=== PATIENT | female | born 1970 | race Two or more races ===

== ENCOUNTER 2019-08-29 09:01 | Emergency (ER) | payer SELFPAY ==
--- NOTE | 2019-08-29 10:24 | RADIOLOGY REPORT (SQ) ---
EXAM DESCRIPTION: CHEST SINGLE VIEW COMPLETED DATE/TIME: 08/29/2019 10:12 am REASON FOR STUDY: chest pain COMPARISON: None. EXAM PARAMETERS: NUMBER OF VIEWS: One view. TECHNIQUE: Single frontal radiographic view of the chest acquired. RADIATION DOSE: NA LIMITATIONS: None. FINDINGS: LUNGS AND PLEURA: No consolidation, pleural effusion or pneumothorax. MEDIASTINUM AND HILAR STRUCTURES: No mediastinal hilar contour abnormality. HEART AND VASCULAR STRUCTURES: The cardiac silhouette and pulmonary vasculature are within normal bee its. BONES: No acute findings. HARDWARE: None in the chest. OTHER: No other finding. IMPRESSION: No acute cardiopulmonary process. TECHNICAL DOCUMENTATION: JOB ID: [id number] [employer]- All Rights Reserved Reading location - IP/workstation name: [email or web address]
[2019-08-29 10:26] LABS: ABSOLUTE EOSINOPHILS # (AUTO) 0.1 10^3/uL (0.0-0.6); ABSOLUTE LYMPHOCYTES (AUTO) 0.9 10^3/uL (0.5-4.7); ABSOLUTE MONOCYTES (AUTO) 0.5 10^3/uL (0.1-1.4); ABSOLUTE NEUT (AUTO) 5.8 10^3/uL (1.7-8.2); BASOPHILS % (AUTO) 0.7 % (0-2); HEMATOCRIT 41.5 % (36.0-47.0); HEMOGLOBIN 14.1 g/dL (12.0-15.5); LYMPHOCYTES % (AUTO) 11.9 % (13-45); MEAN CORPUSCULAR HEMOGLOBIN 32.1 pg (27.0-33.4); MEAN CORPUSCULAR HGB CONC 33.9 g/dL (32.0-36.0); MEAN CORPUSCULAR VOLUME 95 fl (80-97); MONOCYTES % (AUTO) 6.6 % (3-13); PLATELET COUNT 329 10^3/uL (150-450); RED BLOOD COUNT 4.38 10^6/uL (3.72-5.28); RED CELL DISTRIBUTION WIDTH 13.1 % (11.5-14.0); SEGMENTED NEUTROPHILS % (AUTO) 79.8 % (42-78); TOTAL CELLS COUNTED % (AUTO) 100 %; WHITE BLOOD COUNT 7.3 10^3/uL (4.0-10.5)
[2019-08-29 10:39] LABS: ALBUMIN 4.7 g/dL (3.5-5.0); ALKALINE PHOSPHATASE 50 U/L (38-126); ANION GAP 11 (5-19); ASPARTATE AMINO TRANSFERASE 17 U/L (14-36); BILIRUBIN,DIRECT 0.2 mg/dL (0.0-0.4); BILIRUBIN,TOTAL 0.7 mg/dL (0.2-1.3); BLOOD UREA NITROGEN 9 mg/dL (7-20); CALCIUM 10.4 mg/dL (8.4-10.2); CARBON DIOXIDE 26 mmol/L (22-30); CHLORIDE 106 mmol/L (98-107); CREATINE KINASE 86 U/L (30-135); GLUCOSE 103 mg/dL (75-110); POTASSIUM 4.4 mmol/L (3.6-5.0); TOTAL PROTEIN 8.1 g/dL (6.3-8.2)
[2019-08-29 10:50] LABS: CREATINE KINASE MB 0.31 ng/mL (<4.55); TROPONIN I < 0.012 ng/mL
--- NOTE | 2019-08-29 17:04 | ER Document Report ---
ED General - General Chief Complaint: Chest Pain Stated Complaint: CHEST PAIN/BACK PAIN/DIZZINESS/NAUSEA Time Seen by Provider: 08/29/19 16:34 TRAVEL OUTSIDE OF THE [place] IN LAST 30 DAYS: No - HPI Notes: Patient is a 49-year-old female who presents to the emergency department for evaluation of chest pain. She states about 3 weeks ago she started having pain in the left side of her neck. She had a massage, states she believes got somewhat better. She then developed pain in her back and into her chest. The chest pain really became steady yesterday. She describes it occasionally as a burning, but states it does not feel like heartburn. She had some significant nausea associated with it this morning. Nothing seems to make it better or worse. She does not have a primary care provider. She states that she has no pain at this time, but the pain was quite persistent until arriving here earlier today. - Related Data Allergies/Adverse Reactions: No Known Allergies Allergy (Verified 08/29/19 09:29) Home Medications: None Past Medical History - General Information source: Patient - Social History Smoking Status: Current Some Day Smoker Chew tobacco use (# tins/day): No Frequency of alcohol use: None Drug Abuse: None Family History: Malignancy Patient has suicidal ideation: No Patient has homicidal ideation: No - Medical History Medical History: Negative Review of Systems - Review of Systems Constitutional: No symptoms reported EENT: No symptoms reported Cardiovascular: See HPI Respiratory: No symptoms reported Gastrointestinal: See HPI Genitourinary: No symptoms reported Musculoskeletal: See HPI Skin: No symptoms reported Neurological/Psychological: No symptoms reported Physical Exam - Vital signs Vitals: Temp Pulse Resp BP Pulse Ox 97.6 F 69 12 137/76 H 100 08/29/19 09:30 08/29/19 09:30 08/29/19 09:30 08/29/19 09:30 08/29/19 09:30 - Notes Notes: Vital signs reviewed, please refer to chart. Head is normocephalic, atraumatic. Pupils equal round, reactive to light. Neck is supple without meningismus. Palpation of the left side of the patient's neck reveals some ropiness and tension, actually improves her pain. I am unable to reproduce any of her back pain with palpation of the paraspinal musculature or the spine itself throughout the thoracic spine. Heart is regular rate and rhythm. Lungs are clear to auscultation bilaterally. Abdomen is soft, nontender, normoactive bowel sounds throughout. Extremities without cyanosis, clubbing. Posterior calves are nontender. Peripheral pulses are equal. Skin is warm and dry. Patient is awake, alert, neurological exam is nonfocal. Course - Re-evaluation Re-evalutation: 08/29/19 17:04 Patient presents emergency department for evaluation. She had initial cardiac evaluation is ordered per protocol. She is currently chest pain and back pain- free. I am concerned, however, that this patient who does not receive medical screening care regularly could be suffering from more significant pathology given the chest pain with radiation to the back and the fact that it is not reproducible. CTA of the chest is ordered. We will continue to monitor. 08/29/19 19:43 CTA of the chest failed to reveal any significant abnormality. Patient is feeling stable right now, has had no chest pain. My suspicion is that some of this may be anxiety, some may be musculoskeletal. According to , the patient's sister has been recently diagnosed with cancer, this is nearly coincided with her symptoms. At this point I will go ahead and give her a muscle relaxer. It would help with musculoskeletal pain. I explained to her that she needs to follow-up with primary care for further testing and they voiced understanding. They are to return to the ED with worsening. - Vital Signs Vital signs: Temp Pulse Resp BP Pulse Ox 97.6 F 69 11 L 119/77 100 08/29/19 09:30 08/29/19 09:30 08/29/19 16:01 08/29/19 16:00 08/29/19 16:01 - Laboratory Result Diagrams: 08/29/19 09:54 08/29/19 09:54 Laboratory results interpreted by me: 08/29/19 08/29/19 09:54 09:54 Lymph % (Auto) 11.9 L Seg Neutrophils % 79.8 H Calcium 10.4 H - Diagnostic Test Radiology reviewed: Reports reviewed Radiology results interpreted by me: 08/29/19 17:04 Chest X-Ray 08/29/19 09:34 IMPRESSION: No acute cardiopulmonary process. - EKG Interpretation by Me Additional EKG results interpreted by me: 08/29/19 17:04 Sinus mechanism with a rate of 76 bpm. Normal axis and intervals, no acute ST changes concerning for ischemia or infarction. Discharge - Discharge Clinical Impression: Stress Chest pain Qualifiers: Chest pain type: unspecified Qualified Code(s): R07.9 - Chest pain, unspecified Thoracic back pain Qualifiers: Chronicity: acute Back pain laterality: bilateral Qualified Code(s): M54.6 - Pain in thoracic spine Condition: Stable Disposition: HOME, SELF-CARE Instructions: Chest Pain of Unclear Cause ([facility]), Muscle Relaxers ([facility]) Additional Instructions: No clear cause was found for your chest pain today. I suspect the back and neck pain you are having is musculoskeletal, and may be related to stress. Please take muscle relaxer as directed to help with the symptoms. Watch for dizziness and drowsiness with this medicine. Please follow-up with primary care for further evaluation of your chest pain. If your chest pain returns, you develop new or concerning symptoms of any sort, please return immediately to the emergency department for evaluation.
--- NOTE | 2019-08-29 19:37 | RADIOLOGY REPORT (SQ) ---
EXAM DESCRIPTION: CTA CHEST COMPLETED DATE/TIME: 08/29/2019 7:03 pm REASON FOR STUDY: chest pain into back, eval for PE/dissection COMPARISON: None. TECHNIQUE: CT scan of the chest performed using helical scanning technique with dynamic intravenous contrast injection. Images reviewed with lung, soft tissue and bone windows. Reconstructed coronal and sagittal MPR images reviewed. Additional 3 dimensional post-processing performed to develop Maximal Intensity Projection images ([place] P). All images stored on PACS. All CT scanners at this facility use dose modulation, iterative reconstruction, and/or weight based d osing when appropriate to reduce radiation dose to as low as reasonably achievable (ALARA). [facility]: Dose Right [facility]: CareDose [facility]: Dose Right [facility]: Teradose 4D [facility]: [employer] CONTRAST TYPE AND DOSE: contrast/concentration: Isovue 350.00 mg/ml; Total Contrast Delivered: 52.0 ml; Total Saline Delivered: 76.0 ml Contrast bolus optimized for the pulmonary arteries and thoracic aorta. RENAL FUNCTION: Creatinine 0.61 RADIATION DOSE: CT Rad equipment meets quality standard of care and radiation dose reduction techniq ues were employed. CTDIvol: 14.3 - 23.2 mGy. DLP: 506 mGy-cm. . LIMITATIONS: None. FINDINGS: LUNGS AND PLEURA: No masses, infiltrates, or pneumothorax. No pleural effusions or pleura l calcifications. AORTA AND GREAT VESSELS: No aneurysm or thoracic aortic dissection. HEART: No pericardial effusion. No significant coronary artery calcifications. PULMONARY ARTERIES: No emboli visualized in the main pulmonary arteries or the segmental branches. HILAR AND MEDIASTINAL STRUCTURES: No identified masses or abnormal nodes. HARDWARE: None in the chest. UPPER ABDOMEN: No significant findings. Limited exam. THYROID AND OTHER SOFT TISSUES: No masses. No adenopathy. BONES: No acute or significant finding. 3D MIPS: Confirm above findings. OTHER: No other significant finding. IMPRESSION: NORMAL CTA OF THE CHEST. NO PULMONARY EMBOLI. NO THORACIC AORTIC DISSECTION COMMENT: Quality ID # [id number]: Final reports with documentation of one or more dose reduction techniques (e.g., Automated exposure control, adjustment of the mA and/or kV according to patient size, use of iterative reconstruction technique) TECHNICAL DOCUMENTATION: JOB ID: [id number] [employer]- All Rights Reserved Reading location - IP/workstation name: [email or web address]
[2019-08-29 20:18] VITALS: BP 108/70
--- NOTE | 2019-08-30 11:46 | EKG REPORT ---
SEVERITY:- NORMAL ECG - SINUS RHYTHM : Confirmed by: Jane Ashley MD 30-Aug-2019 11:45:51
== END 2019-08-29 20:23 | disposition home or self-care (01) ==
LOC: ER 09:01
DX: R07.9 Chest pain, unspecified (principal); M54.6 Pain in thoracic spine; F43.9 Reaction to severe stress, unspecified; R11.0 Nausea; F17.200 Nicotine dependence, unspecified, uncomplicated
CPT/HCPCS: 36415; 71045; 71275; 80053; 82550; 82553; 84484; 85025; 93005; 93010; 99285

== ENCOUNTER → 2019-11-07 | Outpatient (CLI) | payer OTHER ==
[2019-11-08 05:37] LABS: HEPATITIS C VIRUS AB <0.1 s/co ratio (0.0-0.9)
== END ==
LOC: CCC 08:10
DX: F41.9 Anxiety disorder, unspecified (principal); R25.1 Tremor, unspecified; M54.5 Low back pain
CPT/HCPCS: 36415; 83036; 86701; 86803; 86804

== ENCOUNTER → 2019-11-12 | Outpatient (CLI) | payer OTHER ==
--- NOTE | 2019-11-14 15:05 | WOMENS IMAGING REPORT ---
EXAM DESCRIPTION: MARILEE WHITE BILATERAL SCREEN COMPLETED DATE/TIME: 11/12/2019 9:05 am REASON FOR STUDY: Z12.31 ENCOUNTER FOR SCREENING MAMMOGRAM FOR MALIGNANT NEOPLASM OF DWHOJSN45.31 E NCNTR SCREEN MAMMOGRAM FOR MALIGNANT NEOPLASM OF MUNA COMPARISON: None. EXAM PARAMETERS: Standard craniocaudal and mediolateral oblique views of each breast recorded using digital acquisition. Read with the assistance of CAD. .[facility] - [employer] Version 9.2 LIMITATIONS: None. FINDINGS: RIGHT BREAST MASSES: No suspicious masses. CALCIFICATIONS: No new or suspicious calcifications. ARCHITECTURAL DISTORTION: None. ASYMMETRY: None noted. OTHER: No other significant findings. LEFT BREAST MASSES: No suspicious masses. CALCIFICATIONS: On the left MLO view, 8 cm from the nipple, a cluster of calcifications is present coy perimposed on the pectoralis muscle which could be in the far upper inner quadrant, far upper outer q uadrant, or 12 o'clock position. These calcifications are variable in size shape and density and req uire further evaluation with compression magnification views in the MLO and 90 mediolateral orientat ion. Compression magnification exaggerated craniocaudad view laterally and medially should also be o btained. ARCHITECTURAL DISTORTION: None. ASYMMETRY: None noted. OTHER: No other significant findings. IMPRESSION: No mammographic evidence for malignancy right breast Calcifications left upper breast MLO view only for which additional diagnostic compression magnificat ion mammograms are recommended. 0 Incomplete: Needs Additional Imaging Evaluation and/or prior Mammograms for Comparison. BREAST DENSITY: c. The breasts are heterogeneously dense, which may obscure small masses. BIRAD: ASSESSMENT: 0 Incomplete: Needs Additional Imaging Evaluation and/or prior Mammograms for C omparison. RECOMMENDATION: RECOMMENDED FOLLOW-UP: Additional left breast mammograms for microcalcifications The patient will be contacted for additional imaging. COMMENT: The patient has been notified of the results by letter per SA requirements. Additional no tification policies are in place for contacting patient with suspicious or incomplete findings. Quality ID #225: The [employer] recommends an annual screening mammogram for women aged 40 years or over. This facility utilizes a reminder system to ensure that all patients receive reminder letters, and/or direct phone calls for appointments. This includes reminders for routine scr eening mammograms, diagnostic mammograms, or other Breast Imaging Interventions when appropriate. Th is patient will be placed in the appropriate reminder system. TECHNICAL DOCUMENTATION: FINDING NUMBER: (1) ASSESSMENT: (1) JOB ID: [id number] [employer]- All Rights Reserved Reading location - IP/workstation name: [email or web address]
== END ==
LOC: WI 07:13
PROVIDERS: ATTEND Internal Medicine
DX: Z12.31 Encounter for screening mammogram for malignant neoplasm of breast (principal)
CPT/HCPCS: 77067

== ENCOUNTER → 2019-11-21 | Outpatient (CLI) | payer OTHER ==
--- NOTE | 2019-11-21 14:00 | WOMENS IMAGING REPORT ---
EXAM DESCRIPTION: LEFT DIAGNOSTIC MAMMO W/CAD; U/S BREAST UNILAT LIMITED COMPLETED DATE/TIME: 11/21/2019 8:44 am; 11/21/2019 9:48 am REASON FOR STUDY: R92.0 MAMMOGRAPHIC MICROCALCIFICATION FOUND ON DIAGNOSTIC IMAGING OF BREAST; LEFT BREAST CALCS R92.0 MAMMOGRAPHIC MICROCALCIFICATION FOUND ON DX IMAGING OF COMPARISON: Mammograms 11/12/2019 EXAM PARAMETERS: Compression magnification craniocaudal, exaggerated craniocaudad, 90 mediolateral and mediolateral oblique images of the breast recorded with digital acquisition. Left whole breast exaggerated craniocaudad and 90 mediolateral view. Left breast ultrasound was also performed. Read with the assistance of CAD. .[facility] - [employer] Version 9.2 LIMITATIONS: None. FINDINGS: BREAST LATERALITY: Left MASSES: No suspicious masses. CALCIFICATIONS: A cluster of calcifications variable in size shape and density are present in the far left upper outer quadrant probable 12 to 1 o'clock position. These are at the edge of the field of view on exaggerated craniocaudad and 90 mediolateral views, an with prove very difficult to biopsy u nder stereotactic guidance. On the magnification views, an 8 to 9 mm mammographic mass associated with the calcifications is susp ected. ARCHITECTURAL DISTORTION: None. ASYMMETRY: None noted. OTHER: No other significant findings. Left breast ultrasound: Left breast ultrasound was performed to evaluate for a subcentimeter mass with calcifications in the upper half of the left breast. At about the 12 o'clock position 8 cm from the nipple, a 9 to 10 mm h ypoechoic solid nodule is present with shadowing foci. This could represent the mass with calcificat ions seen on the magnification views. Ultrasound-guided core biopsy, post biopsy clip placement and immediate post procedure follow-up two-view mammogram is recommended of this nodule. If ultrasound-g uided core biopsy clip does not correlate with the calcifications at post biopsy mammogram, then ster eotactic biopsy should be attempted of the calcifications IMPRESSION: Mammographic mass with calcifications indeterminate for malignancy far upper outer quadr ant 12 to 1 o'clock position left breast for which ultrasound-guided core biopsy, post biopsy clip pl acement, and immediate follow-up two-view mammogram recommended. BREAST DENSITY: c. The breasts are heterogeneously dense, which may obscure small masses. BIRAD: ASSESSMENT: 4 Suspicious. Biopsy should be performed in the absence of clinical contra-indic ation. RECOMMENDATION: RECOMMENDED FOLLOW UP: Left breast ultrasound-guided core biopsy, post biopsy clip p lacement with follow-up two-view mammogram. SPECIFIC INTERVENTION/IMAGING/CONSULTATION RECOMMENDED:Left breast ultrasound-guided core biopsy, pos t biopsy clip placement with follow-up two-view mammogram COMMUNICATION:Patient notified by letter COMMENT: The patient has been notified of the results by letter per SA requirements. Additional no tification policies are in place for contacting patient with suspicious or incomplete findings. Quality ID #225: The [employer] recommends an annual screening mammogram for women aged 40 years or over. This facility utilizes a reminder system to ensure that all patients receive reminder letters, and/or direct phone calls for appointments. This includes reminders for routine scr eening mammograms, diagnostic mammograms, or other Breast Imaging Interventions when appropriate. Th is patient will be placed in the appropriate reminder system. TECHNICAL DOCUMENTATION: FINDING NUMBER: (1) ASSESSMENT: (1) JOB ID: [id number] [employer]- All Rights Reserved Reading location - IP/workstation name: [email or web address]
== END ==
LOC: WI 08:00
PROVIDERS: ATTEND Internal Medicine
DX: R92.0 Mammographic microcalcification found on diagnostic imaging of breast (principal)
CPT/HCPCS: 76642; 77065

== ENCOUNTER → 2019-12-09 | Day surgery (SDC) | payer OTHER ==
[~2019-12-09] MED LIST: LIDOCAINE 1% INJ-PF (10 MG/ML) 30 ML SDV ONE; LIDOCAINE 2% INJ (20 MG/ML) 20 ML MDV ONE
--- NOTE | 2019-12-12 10:48 | WOMENS IMAGING REPORT ---
EXAM DESCRIPTION: U/S BREAST BX; LEFT DIAGNOSTIC MAMMO W/CAD COMPLETED DATE/TIME: 12/09/2019 2:32 pm; 12/09/2019 2:21 pm REASON FOR STUDY: R92.2 INCONCLUSIVE MAMMOGRAM; R92.2 S/P US LEFT BREAST BX FOR CLIP PLACEMENT R92.2 INCONCLUSIVE MAMMOGRAM COMPARISON: 11/21/2019 and 11/12/2019. TECHNIQUE: The procedure was discussed with the patient and the patient agreed to proceed. The patient was scanned and the area of interest in the 12-1 o'clock location of the left breast was localized. This correlates with the area of concern on prior imaging studies. This area was targeted for ultrasound-guided core biopsy. After sterile skin prep and 10 mL local lidocaine 2 % skin and deep tissue anesthesia, a 14 gauge coa xial core biopsy needle was used to obtain several cores of tissue from the lesion. Under ultrasound guidance, a Ribbon clip was placed in the areas sampled. There were no immediate post-procedure com plications. MAMMOGRAM: Post-procedure two view mammogram was acquired in the digital mammogram suite. The clip wa s in the expected location. No significant hematoma. Pathology yields a diagnosis of fibrocystic changes. Negative for atypia and malignancy. Pathology is concordant. LIMITATIONS: None. FINDINGS: Ultrasound guided breast biopsy as described above. POST PROCEDURE MAMMOGRAMS FOR MARKER PLACEMENT: Yes IMPRESSION: ULTRASOUND-GUIDED CORE BIOPSY OF THE LEFT BREAST YIELDS A DIAGNOSIS OF FIBROCYSTIC ABDI ES. COMMENT: The ultrasound finding which was biopsied is separate from the area of calcification on rec ent mammography. Calcifications will need to be biopsied separately using stereotactic mammographic technique. COMMUNICATION: The patient was notified of the findings by the breast imaging care team. She is aware of the need for follow-up separate biopsy as above. Patient medication list reviewed: Yes- Quality ID# [id number]:Eligible professional attests to documenting i n the medical record they obtained, updated, or reviewed the patient's current medications. TECHNICAL DOCUMENTATION: JOB ID: [id number] 2010 [employer]- All Rights Reserved Reading location - IP/workstation name: [email or web address]
== END ==
LOC: WI 12-04 10:40
PROVIDERS: ATTEND Internal Medicine
DX: N60.12 Diffuse cystic mastopathy of left breast (principal); R92.2 Inconclusive mammogram; R92.0 Mammographic microcalcification found on diagnostic imaging of breast
CPT/HCPCS: 88305 ×2; 19083; 77065; J3490

== ENCOUNTER → 2019-12-30 | Day surgery (SDC) | payer OTHER ==
[~2019-12-30] MED LIST changes: -LIDOCAINE 1% INJ-PF (10 MG/ML) 30 ML SDV ONE; +LIDOCAINE 1%/EPINEPHRINE INJ 20 ML VIAL ONE
--- NOTE | 2019-12-31 13:52 | RADIOLOGY REPORT (SQ) ---
EXAM DESCRIPTION: STEREO BREAST BX COMPLETED DATE/TIME: 12/30/2019 11:35 am REASON FOR STUDY: (R92.2)INCONCLUSIVE MAMMOGRAM R92.2 INCONCLUSIVE MAMMOGRAM COMPARISON: 11/21/2019 and 11/12/2019. TECHNIQUE: Vacuum-assisted stereotactic-guided biopsy of the lesion in the left breast. Serial progr ess stereotactic and single digital images acquired. PROCEDURE: The procedure was discussed with the patient, including possible complications such as bleeding, infection, nondiagnostic sample or possible findings such as atypical ductal hyperplasia wh ich would require additional surgery. Possible clip placement was explained. The patient agreed t o the procedure. The patient was placed prone on the stereotactic table. The lesion in the breast was localized ster eotactically. The skin of the breast was prepped in sterile fashion. Superficial and deep local an esthesia was provided. A small incision was made in the skin and the biopsy probe was advanced to t he target. Using the vacuum-assisted core biopsy device, multiple core specimens were obtained. Continuous low dose infusion of local anesthesia was used during the procedure. The initial specimen radiograph de monstrated no calcifications. Stereotactic images were then obtained and demonstrated that the calci fications had shifted position during the course of the procedure and were now in a deeper location. The patient was given additional lidocaine and the biopsy needle was advanced further. However, the calcifications could not be satisfactorily sampled. Using [id number] technique a Barrel clip was deployed at the biopsy site. Mammographic im age confirmed presence of the clip. The probe was then removed and hemostasis obtained with manual compression. A compression bandage was applied. Postoperative instructions were explained to the patient. POST-PROCEDURE TWO VIEW DIGITAL MAMMOGRAM: A postoperative hematoma had developed and postprocedure mammogram was not performed. LIMITATIONS: None. FINDINGS: PATHOLOGY: Benign breast tissue with fibrocystic change. No diagnostic microcalcification s are identified. No carcinoma seen. CONCORDANT: Generally concordant, although no calcifications were present. POST PROCEDURE MAMMOGRAMS FOR MARKER PLACEMENT: No IMPRESSION: STEREOTACTIC-GUIDED BIOPSY OF THE LESION IN THE LEFT BREAST. BIOPSY RESULTS ARE GENERA LLY CONCORDANT WITH IMAGING FINDINGS ALTHOUGH NO CALCIFICATIONS WERE PRESENT. FOLLOW-UP: PATIENT SHOULD RETURN FOR 6 MONTH FOLLOW-UP. A REMINDER LETTER WILL BE SENT TO THE PATIENT . NOTIFICATION: THE PATIENT HAS BEEN PERSONALLY NOTIFIED OF THE RESULTS BY THE BREAST INTERVENTIONAL TE AM. ADDITIONAL INTERVENTION, IF NEEDED, HAS BEEN SCHEDULED. COMMENT: Patient medication list reviewed: Yes- Quality ID# [id number]:Eligible professional attests to doc umenting in the medical record they obtained, updated, or reviewed the patient's current medications. TECHNICAL DOCUMENTATION: JOB ID: [id number] 2010 [employer]- All Rights Reserved Reading location - IP/workstation name: [email or web address]
== END ==
LOC: RAD 08:39
PROVIDERS: ATTEND Internal Medicine
DX: N60.12 Diffuse cystic mastopathy of left breast (principal)
CPT/HCPCS: 88305 ×2; 88342; 19081; J3490 ×2

== ENCOUNTER → 2019-12-31 | Outpatient (CLI) | payer OTHER ==
--- NOTE | 2019-12-31 13:53 | WOMENS IMAGING REPORT ---
EXAM DESCRIPTION: BREAST SPECIMEN COMPLETED DATE/TIME: 12/31/2019 9:31 am REASON FOR STUDY: R92.0 SPECIMEN R92.0 MAMMOGRAPHIC MICROCALCIFICATION FOUND ON DX IMAGING OF COMPARISON: None. TECHNIQUE: Specimen radiograph of breast tissue from the stereotactic biopsy. LIMITATIONS: None. FINDINGS: Specimen radiograph of breast tissue from the stereotactic biopsy. Please see procedure note for details and final pathology. IMPRESSION: Specimen radiograph. TECHNICAL DOCUMENTATION: JOB ID: [id number] Reading location - IP/workstation name: [email or web address]
== END ==
LOC: WI 08:59
PROVIDERS: ATTEND Internal Medicine
DX: R92.0 Mammographic microcalcification found on diagnostic imaging of breast (principal)
CPT/HCPCS: 76098

== ENCOUNTER 2020-01-19 12:04 | Observation (INO) | payer OTHER ==
--- NOTE | 2020-01-19 12:11 | ER Document Report ---
ED Medical Screen (RME) - General Chief Complaint: Post Surgical Pain Stated Complaint: BREAST PAIN Time Seen by Provider: 01/19/20 12:09 Primary Care Provider: AMAYA AVALOS MD [Primary Care Provider] - Follow up as needed Notes: HPI: 49-year-old female presenting for increasing redness itching and discomfort to the upper aspect of the left breast since yesterday. Patient states 3 weeks ago she had a biopsy of an area on the upper aspect of the left breast did have some bruising and swelling immediately after the procedure. States in the last 24 hours she has noticed increasing redness spreading across the upper breast. No definitive fever I have greeted and performed a rapid initial assessment of this patient. A comprehensive ED assessment and evaluation of the patient, analysis of test results and completion of the medical decision making process will be conducted by additional ED providers PHYSICAL EXAMINATION: With female fur blower present the upper aspect of the breast where the patient indicated she was having the problem was evaluated. There is erythema overlying the upper aspect of the breast extending from 10:00 through 2:00. There is a firm tender area under the erythema at the biopsy site TRAVEL OUTSIDE OF THE [place] IN LAST 30 DAYS: No - Related Data Allergies/Adverse Reactions: No Known Allergies Allergy (Verified 01/19/20 12:06) Past Medical History - Social History Chew tobacco use (# tins/day): No Frequency of alcohol use: Social Drug Abuse: None Physical Exam - Vital signs Vitals: Temp Pulse Resp BP Pulse Ox 97.8 F 71 16 148/84 H 100 01/19/20 12:07 01/19/20 12:07 01/19/20 12:07 01/19/20 12:07 01/19/20 12:07 Course - Vital Signs Vital signs: Temp Pulse Resp BP Pulse Ox 97.8 F 71 16 148/84 H 100 01/19/20 12:07 01/19/20 12:07 01/19/20 12:07 01/19/20 12:07 01/19/20 12:07 Doctor's Discharge - Discharge Referrals: AMAYA AVALOS MD [Primary Care Provider] - Follow up as needed
[2020-01-19 12:28] LABS: ABSOLUTE BASOPHILS # (AUTO) 0.1 10^3/uL (0.0-0.2); ABSOLUTE LYMPHOCYTES (AUTO) 1.2 10^3/uL (0.5-4.7); ABSOLUTE MONOCYTES (AUTO) 0.9 10^3/uL (0.1-1.4); BASOPHILS % (AUTO) 0.7 % (0-2); EOSINOPHILS % (AUTO) 0.4 % (0-6); HEMATOCRIT 36.3 % (36.0-47.0); HEMOGLOBIN 12.4 g/dL (12.0-15.5); LYMPHOCYTES % (AUTO) 10.8 % (13-45); MEAN CORPUSCULAR HEMOGLOBIN 30.9 pg (27.0-33.4); MEAN CORPUSCULAR HGB CONC 34.1 g/dL (32.0-36.0); MEAN CORPUSCULAR VOLUME 91 fl (80-97); MONOCYTES % (AUTO) 7.8 % (3-13); PLATELET COUNT 336 10^3/uL (150-450); RED BLOOD COUNT 3.99 10^6/uL (3.72-5.28); RED CELL DISTRIBUTION WIDTH 13.3 % (11.5-14.0); SEGMENTED NEUTROPHILS % (AUTO) 80.3 % (42-78); TOTAL CELLS COUNTED % (AUTO) 100 %; WHITE BLOOD COUNT 11.2 10^3/uL (4.0-10.5)
[2020-01-19 12:44] LABS: BLOOD UREA NITROGEN 8 mg/dL (7-20); CALCIUM 9.7 mg/dL (8.4-10.2); CARBON DIOXIDE 29 mmol/L (22-30); CHLORIDE 105 mmol/L (98-107); GLUCOSE 119 mg/dL (75-110); POTASSIUM 4.4 mmol/L (3.6-5.0)
[2020-01-19 12:46] LABS: ANION GAP 5 (5-19)
--- NOTE | 2020-01-19 14:12 | ER Document Report ---
ED General - General Chief Complaint: Post Surgical Pain Stated Complaint: BREAST PAIN Time Seen by Provider: 01/19/20 12:09 Mode of Arrival: Ambulatory Information source: Patient Notes: HPI: 49-year-old female presenting for increasing redness itching and discomfort to the upper aspect of the left breast since yesterday. Patient states 3 weeks ago she had a biopsy of an area on the upper aspect of the left breast did have some bruising and swelling immediately after the procedure. States in the last 24 hours she has noticed increasing redness spreading across the upper breast. No definitive fever [age]-year-old [place] female who speaks good Togolese and understands Togolese who advises 3 weeks ago she had a biopsy of her left upper quadrant breast and patient reports since she had the biopsy she has had pain and inflammation but worse over the last several days. The first week was iced down and she has been taking Tylenol but thereafter she has had pain in her left br east surgical lesion. Today she has redness and inflammation and firmness and unable to lift her left arm above her head because of induced pain in the particular surgical area. She denies any nipple discharge. 1 month prior she had a needle biopsy in her left lateral breast. I examined this patient with Sofiya RN in the room. Patient consented to my assessing her breast lesion. Patient last ate a small Bagel 0 800 and drink a small amount of water. Patient initially was seen by Drs. Jarad Sullivan and and Tutu Pinzon and 3 weeks ago had surgery here at this hospital and patient was seen by Dr. Wang. TRAVEL OUTSIDE OF THE [place] IN LAST 30 DAYS: No - HPI Onset: This morning Onset/Duration: Persistent Quality of pain: Achy, Fullness, Pressure - Related Data Allergies/Adverse Reactions: No Known Allergies Allergy (Verified 01/19/20 12:06) Past Medical History - Social History Smoking Status: Current Every Day Smoker Chew tobacco use (# tins/day): No Frequency of alcohol use: Social Drug Abuse: None Family History: Malignancy Patient has suicidal ideation: No Patient has homicidal ideation: No Physical Exam - Vital signs Vitals: Temp Pulse Resp BP Pulse Ox 97.8 F 71 16 148/84 H 100 01/19/20 12:07 01/19/20 12:07 01/19/20 12:01/19/20 12:01/19/20 12:07 Course - Vital Signs Vital signs: Temp Pulse Resp BP Pulse Ox 98.1 F 71 16 148/86 H 99 01/20/20 07:55 01/20/20 07:55 01/20/20 07:55 01/20/20 07:55 01/20/20 07:55 - Laboratory Result Diagrams: 01/19/20 12:14 01/19/20 12:14 Laboratory results interpreted by me: 01/19/20 01/19/20 12:14 12:14 WBC 11.2 H Lymph % (Auto) 10.8 L Absolute Neuts (auto) 9.0 H Seg Neutrophils % 80.3 H Creatinine 0.48 L Glucose 119 H - Diagnostic Test Radiology reviewed: Reports reviewed Critical Care Note - Critical Care Note Total time excluding time spent on procedures (mins): 90 Comments: I discussed this case with Dr. Sanchez and he advised keep her n.p.o. IV fluids and antibiotics and he will see the patient currently. At 1545 Dr. Sanchez called and advises holding the CT of chest. This order was held but patient had the CT of chest done with abscess of breast as diagnosis Discharge - Discharge Clinical Impression: left breast lesion, Breast abscess, Status post left breast biopsy, Axillary adenopathy Condition: Good Disposition: ADMITTED INPATIENT Admitting Provider: Surgicalist
[2020-01-19] MEDS ORDERED: VANCOMYCIN HCL INJ 1000 MG VIAL IV ONE ×2 (14:19→17:00)
[2020-01-19] MEDS ORDERED: LEVOFLOXACIN 750 MG/D5W RTU 750 MG/150 ML RTUPB IV ONE (14:19)
--- NOTE | 2020-01-19 15:59 | RADIOLOGY REPORT (SQ) ---
EXAM DESCRIPTION: CT CHEST WITH IMAGES COMPLETED DATE/TIME: 01/19/2020 3:47 pm REASON FOR STUDY: left breast lesion COMPARISON: [place] ultrasound done earlier the same day. TECHNIQUE: CT scan of the chest performed using helical scanning technique with dynamic intravenous contrast injection. Images reviewed with lung, soft tissue and bone windows. Reconstructed coronal and sagittal MPR and MIP images reviewed. All images stored on PACS. All CT scanners at this facility use dose modulation, iterative reconstruction, and/or weight based d osing when appropriate to reduce radiation dose to as low as reasonably achievable (ALARA). [facility]: Dose Right [facility]: CareDose [facility]: Dose Right [facility]: Teradose 4D [facility]: [employer] CONTRAST TYPE AND DOSE: 80 mL Omnipaque 350 RENAL FUNCTION: BUN 8, creatinine 0.48 RADIATION DOSE: . LIMITATIONS: None. FINDINGS: LUNGS AND PLEURA: No opacities, nodules, masses. No pneumothorax. No effusions. HILAR AND MEDIASTINAL STRUCTURES: No identified masses or abnormal nodes. HEART AND VASCULAR STRUCTURES: No aneurysm or dissection. No central pulmonary emboli. No pericardi al effusion. HARDWARE: None in the chest. UPPER ABDOMEN: No significant findings. Limited exam. THYROID AND OTHER SOFT TISSUES: No thyroid lesions. Focal left breast mass measuring 3.8 x 2.3 cm. Hounsfield units measure 35. Based on the patient's clinical history and ultrasound this may represe nt post biopsy hematoma or seroma. Developing abscess is also a possibility. There are small left a xillary lymph nodes most likely reactive. BONES: No significant finding. OTHER: No other significant finding. IMPRESSION: Soft tissue mass in the left breast as described. Based on history this could represent developing abscess. Seroma or resolving hematoma are also possibilities. TECHNICAL DOCUMENTATION: JOB ID: [id number] Quality ID # [id number]: Final reports with documentation of one or more dose reduction techniques (e.g., Au tomated exposure control, adjustment of the mA and/or kV according to patient size, use of iterative reconstruction technique) 2010 [employer]- All Rights Reserved Reading location - IP/workstation name: [email or web address]
--- NOTE | 2020-01-19 16:44 | PDOC H&P ---
History of Present Illness Admission Date/PCP: AMAYA AVALOS MD Patient complains of: Left breast pain History of Present Illness: LILIAM VAZQUEZ is a 49 year old female Presents to the emergency department via ground rescue complaining of several day history of swelling, redness, pain left breast. Patient is 1 week, and 1 month status post a sequential minimally invasive left breast biopsies at [facility] in the radiology department. These were performed for microcalcifications, and architectural distortion in the upper aspect of the left breast. Because her report on both biopsies came back negative for malignancy. Patient had 2 clip markers placed. She did well after the procedures, then developed the symptoms as described above. She is seen in the emergency department where she had findings consistent with an abscess. However ultrasound was performed of the left breast which did not abscess. On physical exam she was felt to have shotty adenopathy in the left axilla. So then a CT scan was performed of the chest which confirmed again the left breast abscess and axillary adenopathy. Patient has a leukocytosis of 11,200. Surgery was consulted, she was advised admission for definitive management. Past Medical History Past Medical History: Smoker Past Surgical History Past Surgical History: Minimally invasive left breast biopsies x2 Social History Information Source: Patient Smoking Status: Current Every Day Smoker Electronic Cigarette use?: No Hx Recreational Drug Use: No Hx Prescription Drug Abuse: No Family History Family History: None, Malignancy Parental Family History Reviewed: No Children Family History Reviewed: No Sibling(s) Family History Reviewed.: No Medication/Allergy Home Medications: Methocarbamol [Robaxin-750] 750 mg PO TID PRN #21 tablet 08/29/19 Allergies/Adverse Reactions: No Known Allergies Allergy (Verified 01/19/20 12:06) Review of Systems Constitutional: PRESENT: fever(s), headache(s) Eyes: ABSENT: visual disturbances Ears: ABSENT: hearing changes Breasts: PRESENT: as per HPI - Previous breast biopsies as described in HPI Cardiovascular: ABSENT: chest pain, dyspnea on exertion, edema, orthropnea, palpitations Respiratory: ABSENT: cough, hemoptysis Gastrointestinal: ABSENT: abdominal pain, constipation, diarrhea, hematemesis, hematochezia, nausea, vomiting Genitourinary: ABSENT: dysuria, hematuria Musculoskeletal: ABSENT: joint swelling Integumentary: ABSENT: rash, wounds Neurological: ABSENT: abnormal gait, abnormal speech, confusion, dizziness, focal weakness, syncope Endocrine: ABSENT: cold intolerance, heat intolerance, polydipsia, polyuria Hematologic/Lymphatic: ABSENT: easy bleeding, easy bruising Physical Exam Vital Signs: Temp Pulse Resp BP Pulse Ox 97.7 F 84 14 135/78 H 100 01/19/20 16:15 01/19/20 16:15 01/19/20 16:15 01/19/20 16:15 01/19/20 16:15 Intake & Output 01/18/20 01/19/20 01/20/20 06:59 06:59 06:59 Weight 63.4 kg General appearance: PRESENT: mild distress Head exam: PRESENT: normocephalic Eye exam: PRESENT: EOMI Ear exam: PRESENT: TM's normal bilaterally Mouth exam: PRESENT: dry mucosa Neck exam: PRESENT: full ROM Respiratory exam: PRESENT: clear to auscultation franky Cardiovascular exam: PRESENT: RRR Pulses: PRESENT: normal carotid pulses, normal radial pulses, normal femoral pulses, normal dorsalis pedis pul Breast: PRESENT: Other - Left breast examined. Point tender 12 o'clock position, 6 cm from nipple, with abscess coming to ahead, surrounding erythema, swelling and tenderness. GI/Abdominal exam: PRESENT: soft Neurological exam: PRESENT: alert, awake, oriented to person, oriented to place, oriented to time, oriented to situation Psychiatric exam: PRESENT: appropriate affect Skin exam: PRESENT: dry Additional comments: Left axilla examined. Adenopathy with one dominant node anterior and low against the chest wall Results Laboratory Results: 01/19/20 12:14 01/19/20 12:14 01/19/20 01/19/20 12:14 12:14 WBC 11.2 H RBC 3.99 Hgb 12.4 Hct 36.3 MCV 91 MCH 30.9 MCHC 34.1 RDW 13.3 Plt Count 336 Seg Neutrophils % 80.3 H Sodium 138.0 Potassium 4.4 Chloride 105 Carbon Dioxide 29 Anion Gap 5 BUN 8 Creatinine 0.48 L Est GFR ( Amer) > 60 Glucose 119 H Calcium 9.7 Impressions: Chest CT 01/19/20 15:11 IMPRESSION: Soft tissue mass in the left breast as described. Based on history this could represent developing abscess. Seroma or resolving hematoma are also possibilities. Assessment & Plan - Diagnosis (1) Breast abscess Is this a current diagnosis for this admission?: Yes Plan: Impression: Acute left breast abscess at site of to previous minimally invasive breast biopsies with benign findings, localized cellulitis, leukocytosis. Patient needs I&D Recommendations: 1. Patient will be admitted to the surgical service, kept n.p.o. on IV fluids intravenous antibiotics 2. Patient be taken to the operating room for I&D, packing versus drain placement, culture, and postoperative pain management. 3. Anticipate discharge home in the next 24 hours. (2) Status post left breast biopsy Is this a current diagnosis for this admission?: Yes (3) Smoker Is this a current diagnosis for this admission?: Yes (4) Axillary adenopathy Is this a current diagnosis for this admission?: Yes - Time Time Spent: 30 to 50 Minutes Smoking Cessation Education: 3 to 10 minutes Medications reviewed and adjusted accordingly: Yes Anticipated discharge: Home - Inpatient Certification Based on my medical assessment, after consideration of the patient's comorbidities, presenting symptoms, or acuity I expect that the services needed warrant INPATIENT care.: Yes I certify that my determination is in accordance with my understanding of Medicare's requirements for reasonable and necessary INPATIENT services [42 CFR 412.3e].: Yes Medical Necessity: Need For IV Fluids, Need for Pain Control, Need for IV Antibiotics, Need for Surgery
[2020-01-19] MEDS ORDERED: PROPOFOL INJ 200 MG/20 ML VIAL IV ONE (17:10)
[2020-01-19] MEDS ORDERED: MIDAZOLAM 2 MG/2 ML INJ ONE (17:10)
[2020-01-19] MEDS ORDERED: FENTANYL CITRATE INJ/PF 100 MCG/2 ML AMPUL ONE ×2 (17:10→19:24)
[2020-01-19] MEDS ORDERED: BUPIVACAINE HCL 0.25 % INJ/PF (2.5 MG/1 ML) 30 ML VIAL ONE (17:19)
[2020-01-19] MEDS ORDERED: LIDOCAINE 0.5% INJ-PF (5 MG/ML) 50 ML SDV ONE (17:19)
[2020-01-19] MEDS ORDERED: ONDANSETRON HCL INJ/PF 4 MG/2 ML SDV IV PRN (18:14)
--- NOTE | 2020-01-19 18:20 | Operative Report ---
Operative Report DATE OF SURGERY: 01/19/20 PREOPERATIVE DIAGNOSIS: 1. Acute left breast abscess. 2. Status post minimal ly invasive breast biopsy left side x2. 3. Smoker POSTOPERATIVE DIAGNOSIS: Same with infected hematoma OPERATION: Incision, debridement, drainage and packing of left breast infected hematoma status post minimally invasive biopsy x2 SURGEON: ALPHONSE REDMOND ANESTHESIA: LMAC TISSUE REMOVED OR ALTERED: Nonviable skin and subcutaneous tissue COMPLICATIONS: None ESTIMATED BLOOD LOSS: 20 cc INTRAOPERATIVE FINDINGS: See below PROCEDURE: Patient was seen in the preop holding area left breast marked, then patient taken to the main operating where LMAC anesthesia was induced. Left arm was abducted, left breast prepped and draped sterile fashion. Surgical plan and surgical timeout were conducted. The pointing abscess at the 11:30 position left breast, approximately 6 to 8 cm from the nipple was anesthetized with quarter percent Marcaine 1% plain lidocaine. A 2 and half centimeter long curvilinear incision was made over the point of maximum elevation. A small sliver of skin was excised, and the subcutaneous tissue excised as well. This was performed with a #10 blade. We immediately got into some cloudy fluid, and significant amount of clot. Using the index finger all pockets were evacuated of chunks of clot. Gram stain culture and sensitivity performed of the wound cavity. Small dermal bleeders cauterized. Once all pockets were broken up, we irrigated the wound several times with saline, then packed it with 1-1/2 feet of half inch iodoform packing. Dry 4 x 4 applied. Patient taught procedure well. Plan: 1. Keep overnight on IV antibiotics, pain management 2. Anticipate packing removal and discharge home tomorrow.
[2020-01-19] MEDS ORDERED: FENTANYL CITRATE INJ/PF 100 MCG/2 ML AMPUL IV PRN ×2 (18:24)
[2020-01-19] MEDS ORDERED: MORPHINE SULFATE 10 MG/ML INJ IV PRN (18:24)
[2020-01-19] MEDS: FENTANYL CITRATE INJ/PF 100 MCG/2 ML AMPUL IV PRN ×2 (18:24→18:30)
[2020-01-19] MEDS ORDERED: DIPHENHYDRAMINE HCL 50 MG/ML VIAL IV PRN (18:24)
[2020-01-19] MEDS ORDERED: MEPERIDINE HCL/PF INJ 25 MG/1 ML DISP.SYRIN IV PRN (18:24)
[2020-01-19] MEDS ORDERED: PROMETHAZINE HCL INJ 25 MG/1 ML VIAL IV PRN (18:24)
--- NOTE | 2020-01-19 18:47 | RADIOLOGY REPORT (SQ) ---
EXAM DESCRIPTION: U/S BREAST UNILATERAL LIMITED IMAGES COMPLETED DATE/TIME: 01/19/2020 12:48 pm REASON FOR STUDY: eval erythema/tenderness at biopsy site L breast COMPARISON: CT chest 01/19/2020 Breast ultrasound 12/09/2019 TECHNIQUE: Static and Realtime grayscale interrogation of focal area of concern in the left breast u pper inner quadrant. Selected color doppler/spectral images saved to PACS. LIMITATIONS: None. FINDINGS: In the upper inner quadrant left breast, patient indicates an area of redness and pain. D eep to the skin, a 3.3 x 2.2 cm multi septated complex cystic areas present with surrounding increase d color flow, likely a breast abscess. This correlates with coronal CT images 8 through 11. There is surrounding edema in the breast tissue. There is mild skin thickening. IMPRESSION: 3.3 x 2.2 cm breast abscess upper inner quadrant left breast BIRAD: 2 Benign findings.. RECOMMENDATION: RECOMMENDED FOLLOW-UP: Surgical consult recommended COMMENT: The [employer] (ACR) has developed recommendations for screening MRI of the breasts in certain patient populations, to be used in conjunction with mammography. Breast MRI s urveillance may be appropriate for women with more than 20% lifetime risk of developing breast cancer as determined by genetic testing, significant family history of the disease, or history of mantle r adiation for Hodgkins Disease. ACR Practice Guidelines 2008. TECHNICAL DOCUMENTATION: FINDING NUMBER: (1) ASSESSMENT: (1) JOB ID: [id number] 2010 [employer]- All Rights Reserved Reading location - IP/workstation name: [email or web address]
[2020-01-19] MEDS ORDERED: CEFAZOLIN 1 GM/D5W RTU 1 GM/50 ML RTUPB IV SCH (19:00)
[2020-01-19] MEDS ORDERED: MORPHINE SULFATE 10 MG/ML INJ ONE (20:02)
[2020-01-19] MEDS ORDERED: CEFAZOLIN 1 GM/D5W RTU 1 GM/50 ML RTUPB IV ONE (20:48)
[2020-01-19] MEDS ORDERED: ACETAMINOPHEN 1,000 MG/100 ML RTUPB IV ONE (22:04)
[2020-01-19] MEDS: ACETAMINOPHEN 1,000 MG/100 ML RTUPB IV SCH (22:08)
[2020-01-20] MEDS ORDERED: ACETAMINOPHEN INJ/PF 1000 MG/100 ML SDV IV SCH
[2020-01-20] MEDS: KETOROLAC TROMETHAMINE INJ/PF 30 MG/1 ML SDV IV PRN ×2 (02:33→08:47)
[2020-01-20] MEDS ORDERED: ACETAMINOPHEN 1,000 MG/100 ML RTUPB IV ONE (03:24)
[2020-01-20] MEDS: ACETAMINOPHEN 1,000 MG/100 ML RTUPB IV SCH ×2 (03:37→08:47)
[2020-01-20] MEDS ORDERED: CEFAZOLIN 1 GM/D5W RTU 1 GM/50 ML RTUPB IV SCH (05:30)
[2020-01-20] MEDS ORDERED: MORPHINE SULFATE 10 MG/ML INJ ONE (09:01)
[2020-01-20] MEDS ORDERED: MORPHINE SULFATE 10 MG/ML INJ IV ONE (09:30)
[2020-01-20] MEDS ORDERED: DOCUSATE SODIUM 100 MG CAPSULE PO SCH (10:00)
--- NOTE | 2020-01-20 11:36 | PDOC DISCHARGE SUMMARY ---
General - Admit/Disc Date/PCP Admission Date/Primary Care Provider: 01/19/20 16:58 AMAYA AVALOS MD Discharge Date: 01/20/20 - Discharge Diagnosis Final Diagnosis: Infected left breast hematoma - Assessment Summary: This is a 49-year-old female with a history of left breast biopsy. She developed an infected left breast hematoma, requiring surgical drainage in the operating room yesterday. Patient underwent surgery, and was sent to the floor in stable condition. The patient's wound today is clean, without purulence. There is still some induration, however there is no erythema of the skin. The patient is currently afebrile. On postoperative day 1, it is felt that the patient has reached maximal hospital benefit and is fit for discharge. - Additional Information Resuscitation Status: Full Code Discharge Diet: As Tolerated Discharge Activity: Balance Activity w/Rest Referrals: AMAYA AVALOS MD [Primary Care Provider] - Follow up as needed ALPHONSE REDMOND MD [ACTIVE STAFF] - 01/29/20 1:00 pm (CALL THE OFFICE FOR ANY QUESTIONS AND CONCERNS.) Prescriptions: Sulfamethoxazole/Trimethoprim [Bactrim Ds Tablet] 2 each PO BID #28 tablet Oxycodone HCl/Acetaminophen [Percocet 5-325 mg Tablet] 1 tab PO Q6HP PRN #15 tab PRN Reason: Home Medications: Ascorbic Acid [Vitamin C 500 mg Tablet] 500 mg PO DAILY 01/19/20 Cholecalciferol (Vitamin D3) [Vitamin D3 400 Unit Tablet] 400 unit PO DAILY 01/19/20 Zinc [Zinc Chelated] 50 mg PO DAILY 01/19/20 Oxycodone HCl/Acetaminophen [Percocet 5-325 mg Tablet] 1 tab PO Q6HP PRN #15 tab 01/20/20 Sulfamethoxazole/Trimethoprim [Bactrim Ds Tablet] 2 each PO BID #28 tablet 01/20/20 Additional Information: Discharge home. Diet as tolerated. Activity: Nonstrenuous. Okay to shower. Follow-up with [facility] in 7 to 10 days. Percocet 5/325 mg p.o. every 6 hours as needed for pain. Bactrim DS 2 tabs, p.o. twice daily x7 days. History of Present Illiness History of Present Illness: LILIAM VAZQUEZ is a 49 year old female Physical Exam Vital Signs: Temp Pulse Resp BP Pulse Ox 98.1 F 71 16 148/86 H 99 01/20/20 07:55 01/20/20 07:55 01/20/20 07:55 01/20/20 07:55 01/20/20 07:55 Intake & Output 01/19/20 01/20/20 01/21/20 06:59 06:59 06:59 Intake Total 1450 100 Output Total 800 Balance 650 100 Weight 63.8 kg Results Laboratory Results: WBC 11.2 10^3/uL (4.0-10.5) H 01/19/20 12:14 RBC 3.99 10^6/uL (3.72-5.28) 01/19/20 12:14 Hgb 12.4 g/dL (12.0-15.5) 01/19/20 12:14 Hct 36.3 % (36.0-47.0) 01/19/20 12:14 MCV 91 fl (80-97) 01/19/20 12:14 MCH 30.9 pg (27.0-33.4) 01/19/20 12:14 MCHC 34.1 g/dL (32.0-36.0) 01/19/20 12:14 RDW 13.3 % (11.5-14.0) 01/19/20 12:14 Plt Count 336 10^3/uL (150-450) 01/19/20 12:14 Lymph % (Auto) 10.8 % (13-45) L 01/19/20 12:14 Bacon % (Auto) 7.8 % (3-13) 01/19/20 12:14 Eos % (Auto) 0.4 % (0-6) 01/19/20 12:14 Baso % (Auto) 0.7 % (0-2) 01/19/20 12:14 Absolute Neuts (auto) 9.0 10^3/uL (1.7-8.2) H 01/19/20 12:14 Absolute Lymphs (auto) 1.2 10^3/uL (0.5-4.7) 01/19/20 12:14 Absolute Monos (auto) 0.9 10^3/uL (0.1-1.4) 01/19/20 12:14 Absolute Eos (auto) 0.0 10^3/uL (0.0-0.6) 01/19/20 12:14 Absolute Basos (auto) 0.1 10^3/uL (0.0-0.2) 01/19/20 12:14 Seg Neutrophils % 80.3 % (42-78) H 01/19/20 12:14 Sodium 138.0 mmol/L (137-145) 01/19/20 12:14 Potassium 4.4 mmol/L (3.6-5.0) 01/19/20 12:14 Chloride 105 mmol/L (98-107) 01/19/20 12:14 Carbon Dioxide 29 mmol/L (22-30) 01/19/20 12:14 Anion Gap 5 (5-19) 01/19/20 12:14 BUN 8 mg/dL (7-20) 01/19/20 12:14 Creatinine 0.48 mg/dL (0.52-1.25) L 01/19/20 12:14 Est GFR ( Amer) > 60 (>60) 01/19/20 12:14 Est GFR (MDRD) Non-Af > 60 (>60) 01/19/20 12:14 Glucose 119 mg/dL (75-110) H 01/19/20 12:14 Calcium 9.7 mg/dL (8.4-10.2) 01/19/20 12:14 Impressions: Breast Ultrasound 01/19/20 12:09 IMPRESSION: 3.3 x 2.2 cm breast abscess upper inner quadrant left breast Chest CT 01/19/20 15:11 IMPRESSION: Soft tissue mass in the left breast as described. Based on history this could represent developing abscess. Seroma or resolving hematoma are also possibilities.
[2020-01-20 11:43] VITALS: BP 148/86
== END 2020-01-20 12:30 | disposition home or self-care (01) ==
LOC: ER 12:04 → EH 16:58 → 2N 19:30
PROVIDERS: ADMIT Surgery; ATTEND Surgery
DX: N61.1 Abscess of the breast and nipple (principal); L76.32 Postprocedural hematoma of skin and subcutaneous tissue following other procedure; Y84.8 Other medical procedures as the cause of abnormal reaction of the patient, or of later complication, without mention of misadventure at the time of the procedure; R59.0 Localized enlarged lymph nodes; F17.200 Nicotine dependence, unspecified, uncomplicated; R51 Headache
CPT/HCPCS: 99291; 99292; 96365; 96366; 36415; 87040; 87070; 87205; 85025; 87075; 80048; 76642; 71260; 21501; G0378 ×3; J2250; J0690 ×2; J3010; J3490; J1885; J2270 ×2; J2704; J3370; J1956; J0131 ×2; 400; 87077